=== PATIENT | female | born 1965 | race Caucasian/White ===

== ENCOUNTER 2016-04-03 09:53 | Emergency (ER) | payer SELFPAY ==
[~2016-04-03] VITALS: Ht 167.6 cm; Wt 95.0 kg
[2016-04-03 09:55] VITALS: BP 165/95; PULSE 82; RESP 20; TEMP 98; O2SAT 92
[2016-04-03 11:18] LABS: AUTOMATED NEUTROPHIL # 6.4 TH/MM3 (1.8-7.7); BASOPHIL # 0.1 TH/MM3 (0-0.2); BASOPHIL % 1.4 % (0.0-2.0); EOSINOPHIL # 0.4 TH/MM3 (0-0.4); EOSINOPHIL % 4.1 % (0.0-4.0); HEMATOCRIT 46.1 % (35.0-46.0); HEMO FLAGS DIFF FINAL; LYMPH % 26.1 % (9.0-44.0); LYMPHOCYTE # 2.6 TH/MM3 (1.0-4.8); MEAN CORPUSCULAR HEMOGLOBIN 29.3 PG (27.0-34.0); MEAN CORPUSCULAR HGB CONC 34.1 % (32.0-36.0); MONO % 5.4 % (0.0-8.0); PLATELET COUNT 322 TH/MM3 (150-450); RED BLOOD COUNT 5.36 MIL/MM3 (4.00-5.30); RED CELL DISTRIBUTION WIDTH 12.9 % (11.6-17.2); WHITE BLOOD COUNT 10.1 TH/MM3 (4.0-11.0)
--- NOTE | 2016-04-03 11:33 | RADRPT ---
EXAM DATE/TIME: 04/03/2016 10:46 [place] COMPARISON: TOE RIGHT 2ND DIGIT(MIN 2VWS), January 25, 2015, 14:36. INDICATIONS : Chest pain and axiety for 1 week. MEDICAL HISTORY : None. SURGICAL HISTORY : None. ENCOUNTER: Initial ACUITY: 1 week PAIN SCORE: 5/10 LOCATION: Bilateral chest FINDINGS: A single view of the chest demonstrates the lungs to be symmetrically aerated without evidence of mas s, infiltrate or effusion. The cardiomediastinal contours are unremarkable. Osseous structures are intact. CONCLUSION: 1. No acute cardiopulmonary findings. Larry Watts MD on April 03, 2016 at 11:31 Board Certified Radiologist. This report was verified electronically.
--- NOTE | 2016-04-03 11:34 | PD ---
HPI Chief Complaint: Chest Pain Time Seen by Provider: 11:34 Travel History International Travel<30 days: No Contact w/Intl Traveler<30days: No Traveled to known affect area: No History of Present Illness HPI 50-year-old female presents to the emergency Department with complaint of right- sided reproducible chest pain 2 days. Chest pain comes and goes and is worse with activity. Describes as pressure and tight feeling. Denies shortness of breath. Sometimes feels heart palpitations. She has been hanging ceiling fans at work and says that she may have pulled a muscle in her chest. Has been under a lot of stress and started smoking cigarettes again 2 weeks ago. History of anxiety and ran out of her anxiety medications 4 days ago. Takes escitalopram and Zyprexa. Rates pain 10. Has not taken any medications or tried any treatments to alleviate her symptoms. Chest pain is also reproduced with deep breathing. Father of a heart attack at age 39. Also complaining of a headache for the last 2 days that has been constant. Headache is similar to past headaches. Starts in the back of the neck and radiates forward. Throbbing sensation. Bilateral in the front and back. Denies fever, chills, nausea, vomiting. Denies focal deficits or weakness. Denies allergies. History of hypertension and anxiety. Does not take medications for hypertension. Does not have a primary care provider. No other modifying factors or associated signs and symptoms. PFSH Past Medical History Cardiovascular Problems: Yes (HTN) Diminished Hearing: No Hypertension: Yes Menopausal: Yes Past Surgical History Appendectomy: Yes Cholecystectomy: Yes (2001) Social History Alcohol Use: Yes (12 PACK 3 TIMES A WEEK) Tobacco Use: Yes (1 PACK A DAY FOR 20 YEARS) Allergies-Medications (Allergen,Severity, Reaction): Coded Allergies: No Known Allergies (Verified , 01/25/15) Reported Meds & Prescriptions Reported Meds & Active Scripts Active Naproxen 500 Mg Tab 500 Mg PO BID PRN 7 Days Robaxin (Methocarbamol) 500 Mg Tab 500 Mg PO QID PRN Reported Lisinopril 10 Mg Tab 10 Mg PO DAILY Escitalopram (Escitalopram Oxalate) 10 Mg Tab 15 Mg PO DAILY Zyprexa (Olanzapine) 2.5 Mg Tab 2.5 Mg PO HS Review of Systems Except as stated in HPI: all other systems reviewed are Neg Physical Exam Narrative GENERAL: Well-nourished, well-developed female patient, in no acute distress SKIN: Warm and dry. HEAD: Atraumatic. Normocephalic. EYES: Pupils equal and round. No scleral icterus. No injection or drainage. ENT: Mucosa pink and moist. NECK: Trachea midline. No JVD. CHEST: Right chest above the right breast with reproducible chest wall tenderness; no crepitance or deformity. No retractions or use of accessory muscles. CARDIOVASCULAR: Regular rate and rhythm. No murmur appreciated. 2+ radial pulses and equal. Carotid pulses 2+ and equal. RESPIRATORY: No accessory muscle use. Clear to auscultation. Breath sounds equal bilaterally. GASTROINTESTINAL: Abdomen soft, non-tender, nondistended. Hepatic and splenic margins not palpable. Bowel sounds are active 4 quadrants. MUSCULOSKELETAL: No obvious deformities. No clubbing. No cyanosis. No edema. NEUROLOGICAL: Awake and alert. Oriented 3. No obvious cranial nerve deficits. Motor grossly within normal limits. Normal speech. Moves all extremities. 5/5 strength to all extremities. PSYCHIATRIC: Appropriate mood and affect; insight and judgment normal. Data Data Last Documented VS Vital Signs Date Time Temp Pulse Resp B/P Pulse Ox O2 Delivery O2 Flow Rate FiO2 04/03/16 11:36 98 2 04/03/16 11:36 Nasal Cannula 04/03/16 11:36 86 20 04/03/16 09:55 98.0 165/95 Orders Electrocardiogram (04/03/16 10:46) Complete Blood Count With Diff (04/03/16 10:46) Basic Metabolic Panel (Bmp) (04/03/16 10:46) Ckmb (Isoenzyme) Profile (04/03/16 10:46) Troponin I (04/03/16 10:46) Chest, Single Ap (04/03/16 10:46) Iv Access Insert/Monitor (04/03/16 10:46) Ecg Monitoring (04/03/16 10:46) Oxygen Administration (04/03/16 10:46) Oximetry (04/03/16 10:46) Aspirin Chew (Aspirin Chew) (04/03/16 11:45) CKMB (04/03/16 11:00) CKMB% (04/03/16 11:00) Electrocardiogram (04/03/16 11:30) Labs Laboratory Tests Test 04/03/16 11:00 White Blood Count 10.1 TH/MM3 Red Blood Count 5.36 MIL/MM3 Hemoglobin 15.7 GM/DL Hematocrit 46.1 % Mean Corpuscular Volume 86.0 FL Mean Corpuscular Hemoglobin 29.3 PG Mean Corpuscular Hemoglobin 34.1 % Concent Red Cell Distribution Width 12.9 % Platelet Count 322 TH/MM3 Mean Platelet Volume 7.9 FL Neutrophils (%) (Auto) 63.0 % Lymphocytes (%) (Auto) 26.1 % Monocytes (%) (Auto) 5.4 % Eosinophils (%) (Auto) 4.1 % Basophils (%) (Auto) 1.4 % Neutrophils # (Auto) 6.4 TH/MM3 Lymphocytes # (Auto) 2.6 TH/MM3 Monocytes # (Auto) 0.5 TH/MM3 Eosinophils # (Auto) 0.4 TH/MM3 Basophils # (Auto) 0.1 TH/MM3 CBC Comment DIFF FINAL Differential Comment Sodium Level 137 MEQ/L Potassium Level 4.3 MEQ/L Chloride Level 101 MEQ/L Carbon Dioxide Level 30.3 MEQ/L Anion Gap 6 MEQ/L Blood Urea Nitrogen 15 MG/DL Creatinine 1.13 MG/DL Estimat Glomerular Filtration 51 ML/MIN Rate Random Glucose 100 MG/DL Calcium Level 9.5 MG/DL Total Creatine Kinase 149 U/L Creatine Kinase MB 1.6 NG/ML Troponin I LESS THAN 0.02 NG/ML MDM Medical Decision Making Medical Screen Exam Complete: Yes Emergency Medical Condition: Yes Medical Record Reviewed: Yes Differential Diagnosis Muscle strain, chest wall pain, [place], ACS, anxiety Narrative Course 50-year-old female with reproducible right-sided chest pain. Has been hanging ceiling fans at work and may have pulled a muscle. Patient has history of anxiety and hypertension. Has not taken anxiety medications, escitalopram and Zyprexa, 4 days. Does not take medication for her blood pressure. Father did of heart attack at age 39. Tobacco use daily. Placed on cardiopulmonary monitor. IV site obtained. EKG with normal sinus rhythm; no ST elevation or depression. Labs, chest x-ray, aspirin ordered. 1151: CBC unremarkable. Troponin less than 0.02. Creatinine 1.13. Otherwise BMP is unremarkable. 1156: Chest x-ray concludes No acute cardiopulmonary findings. CKMB 1.6. Using HEART score, patient has score of 3 and risk of MACE of 0.9-1.7%. Discussed with patient and she feels comfortable going home. Patient will be discharged home with naproxen and Robaxin for possible muscle strain of the chest. Patient requesting med refill escitalopram and Zyprexa. Denies homicidal or homicidal ideations. Discussed community resources for follow-up for anxiety med refills. Patient verbalizes understanding and agreement. Patient is medically cleared and stable for discharge. Discussed reasons to return to the emergency department. Instructed patient to follow up with primary care provider. Patient agrees with treatment plan. The patients vital signs are stable and the patient is stable for outpatient follow-up and treatment. Patient discharged home, stable and in no acute distress. Diagnosis Primary Impression: Chest wall pain Referrals: Primary Care Physician Patient Instructions: Chest Pain (ED), Chest Wall Pain (ED), General Instructions, Noncardiac Chest Pain (ED) Additional Instructions: Ibuprofen or Tylenol as directed and as needed to reduce pain Robaxin as prescribed and as needed to reduce muscle spasms Heating pad and/or ice to affected area to reduce pain Avoid aggravating activities; increase activity as tolerated Gentle stretching to the affected muscle may be helpful Follow-up with a primary care provider Return to the emergency department immediately with worsening of symptoms Med/Other Pt SpecificInfo: Prescription(s) given Scripts Naproxen 500 Mg [id number] Mg PO BID PRN (PAIN SCALE 1 TO 10) 7 Days Ref 0 Prov:Nadia Jacobs 04/03/16 Methocarbamol (Robaxin)500 Mg [id number] Mg PO QID PRN (MUSCLE SPASM) #30 TAB Ref 0 Prov:Nadia Jacobs 04/03/16 Disposition: 01 DISCHARGE HOME Condition: Stable Nadia Jacobs Apr 03, 2016 11:34
[2016-04-03 11:36] VITALS: O2SAT 98
[2016-04-03 11:43] LABS: ANION GAP 6 MEQ/L (5-15); BICARBONATE 30.3 MEQ/L (21.0-32.0); BLOOD UREA NITROGEN 15 MG/DL (7-18); CHLORIDE 101 MEQ/L (98-107); GLOMERULAR FILTRATION RATE 51 ML/MIN (>89); POTASSIUM 4.3 MEQ/L (3.5-5.1); SODIUM (NA) 137 MEQ/L (136-145)
[2016-04-03] MEDS ORDERED: ESCI10TA PO (11:44)
[2016-04-03] MEDS ORDERED: ZYPR2.5T2 PO (11:44)
[2016-04-03] MEDS ORDERED: ASPIRIN 81 MG CHEW TAB PO ONE (11:45)
[2016-04-03] MEDS ORDERED: LISI10TA3 PO (11:46)
[2016-04-03 11:47] LABS: CREATINE KINASE 149 U/L (26-192)
[2016-04-03 11:59] LABS: CKMB 1.6 NG/ML (0.5-3.6)
[2016-04-03] MEDS ORDERED: NAPR500T PO (12:05)
[2016-04-03] MEDS ORDERED: ROBA500T PO (12:05)
--- NOTE | 2016-04-03 12:19 | PD ---
Data Data Last Documented VS Vital Signs Date Time Temp Pulse Resp B/P Pulse Ox O2 Delivery O2 Flow Rate FiO2 04/03/16 11:36 98 2 04/03/16 11:36 Nasal Cannula 04/03/16 11:36 86 20 04/03/16 09:55 98.0 165/95 Orders Electrocardiogram (04/03/16 10:46) Complete Blood Count With Diff (04/03/16 10:46) Basic Metabolic Panel (Bmp) (04/03/16 10:46) Ckmb (Isoenzyme) Profile (04/03/16 10:46) Troponin I (04/03/16 10:46) Chest, Single Ap (04/03/16 10:46) Iv Access Insert/Monitor (04/03/16 10:46) Ecg Monitoring (04/03/16 10:46) Oxygen Administration (04/03/16 10:46) Oximetry (04/03/16 10:46) Aspirin Chew (Aspirin Chew) (04/03/16 11:45) CKMB (04/03/16 11:00) CKMB% (04/03/16 11:00) Electrocardiogram (04/03/16 11:30) Labs Laboratory Tests Test 04/03/16 11:00 White Blood Count 10.1 TH/MM3 Red Blood Count 5.36 MIL/MM3 Hemoglobin 15.7 GM/DL Hematocrit 46.1 % Mean Corpuscular Volume 86.0 FL Mean Corpuscular Hemoglobin 29.3 PG Mean Corpuscular Hemoglobin 34.1 % Concent Red Cell Distribution Width 12.9 % Platelet Count 322 TH/MM3 Mean Platelet Volume 7.9 FL Neutrophils (%) (Auto) 63.0 % Lymphocytes (%) (Auto) 26.1 % Monocytes (%) (Auto) 5.4 % Eosinophils (%) (Auto) 4.1 % Basophils (%) (Auto) 1.4 % Neutrophils # (Auto) 6.4 TH/MM3 Lymphocytes # (Auto) 2.6 TH/MM3 Monocytes # (Auto) 0.5 TH/MM3 Eosinophils # (Auto) 0.4 TH/MM3 Basophils # (Auto) 0.1 TH/MM3 CBC Comment DIFF FINAL Differential Comment Sodium Level 137 MEQ/L Potassium Level 4.3 MEQ/L Chloride Level 101 MEQ/L Carbon Dioxide Level 30.3 MEQ/L Anion Gap 6 MEQ/L Blood Urea Nitrogen 15 MG/DL Creatinine 1.13 MG/DL Estimat Glomerular Filtration 51 ML/MIN Rate Random Glucose 100 MG/DL Calcium Level 9.5 MG/DL Total Creatine Kinase 149 U/L Creatine Kinase MB 1.6 NG/ML Troponin I LESS THAN 0.02 NG/ML [facility] Supervised Visit with VARGHESE: Yes Narrative Course The history, exam, and medical decision-making in the associated midlevel provider note were completed with my assistance. I reviewed and agree with the findings presented. I attest that I had a [id number] encounter with the patient on the same day, and personally performed and documented my assessment and findings in the medical record. *My assessment and Findings: This is a 50-year-old female who presents to the emergency department with chest pain, atypical, going on since yesterday. She does have multiple risk factors for heart disease including hypertension, and smoking. Her heart score is 3. EKG is reassuring and nonischemic. Troponin is normal. Patient is very well-appearing. Patient was offered observation and told that she has a about a 2% chance of adverse event in the next 6 weeks. She chose to be discharged which I think is reasonable and she will follow up with her primary care physician. Diagnosis Primary Impression: Chest wall pain Referrals: Primary Care Physician Patient Instructions: General Instructions, Chest Pain (ED), Noncardiac Chest Pain (ED), Chest Wall Pain (ED) Additional Instruction: Ibuprofen or Tylenol as directed and as needed to reduce pain Robaxin as prescribed and as needed to reduce muscle spasms Heating pad and/or ice to affected area to reduce pain Avoid aggravating activities; increase activity as tolerated Gentle stretching to the affected muscle may be helpful Follow-up with a primary care provider Return to the emergency department immediately with worsening of symptoms Scripts Naproxen 500 Mg [id number] Mg PO BID PRN (PAIN SCALE 1 TO 10) 7 Days Ref 0 Prov:Nadia JacobsP 04/03/16 Methocarbamol (Robaxin)500 Mg [id number] Mg PO QID PRN (MUSCLE SPASM) #30 TAB Ref 0 Prov:Nadia JacobsP 04/03/16 Disposition: 01 DISCHARGE HOME Condition: Stable Colleen Garcia MD Apr 03, 2016 12:19
--- NOTE | 2016-04-03 12:19 | EKG ---
Date Performed: 04/03/2016 Time Performed: 11:30:23 PTAGE: 50 years EKG: Sinus rhythm BORDERLINE RIGHT AXIS DEVIATION BORDERLINE ECG PREVIOUS TRACING : 04/03/2016 11.06 DOCTOR: Steve Cervantes Interpretating Date/Time 04/03/2016 12:18:14
--- NOTE | 2016-04-03 12:20 | EKG ---
Date Performed: 04/03/2016 Time Performed: 11:06:53 PTAGE: 50 years EKG: ECTOPIC ATRIAL RHYTHM POSSIBLE LEFT ATRIAL ENLARGEMENT LATERAL MYOCARDIAL INFARCTION ACU TE [place] WARNING: DATA QUALITY MAY AFFECT INTERPRETATION PREVIOUS TRACING : 03/25/2014 12.52 DOCTOR: Steve Cervantes Interpretating Date/Time 04/03/2016 12:19:13
[2016-04-03 12:26] VITALS: BP 134/87; PULSE 89; RESP 20; TEMP 98; O2SAT 96
== END 2016-04-03 13:14 | disposition home or self-care (01) ==
LOC: NEPE 09:53
DX: R07.89 Other chest pain (principal); R94.31 Abnormal electrocardiogram [ECG] [EKG]; I10 Essential (primary) hypertension; F17.210 Nicotine dependence, cigarettes, uncomplicated
CPT/HCPCS: 71010; 80048; 82550; 82552; 84484; 85025; 93005